=== PATIENT | female | born 1990 | race Caucasian/White ===

== ENCOUNTER → 2018-03-19 | Emergency (ER) | payer OTHER ==
[~2018-03-19] VITALS: Ht 157.5 cm; Wt 63.0 kg
[~2018-03-19] MED LIST: PEPCID40 MG PO; ZOFRAN ODT4 MG PO
== END | disposition home or self-care (01) ==
LOC: ER 21:40
DX: O26.891 Other specified pregnancy related conditions, first trimester (principal); K29.70 Gastritis, unspecified, without bleeding; Z34.01 Encounter for supervision of normal first pregnancy, first trimester

== ENCOUNTER 2018-09-22 10:49 | Inpatient (IN) | payer OTHER ==
[~2018-09-22] VITALS: Ht 157.5 cm; Wt 75.3 kg
[2018-11-09] MEDS ORDERED: OBSTETRIX DHA1 EACH PO (16:11)
== END 2018-11-12 11:41 | disposition home or self-care (01) | DRG 788 ==
LOC: OB/GYN 10-21 12:00 → LDR 11-09 05:20 → OB/GYN 11-09 05:32 → LDR 11-09 06:34 → OB/GYN 11-09 21:24
PROVIDERS: ADMIT Obstetrics & Gynecology
PROC: 3E0P7VZ Introduction of Hormone into Female Reproductive, Via Natural or Artificial Opening (ICD-10-PCS; 2018-11-09)
PROC: 3E033VJ Introduction of Other Hormone into Peripheral Vein, Percutaneous Approach (ICD-10-PCS; 2018-11-09)
PROC: 4A1HXCZ Monitoring of Products of Conception, Cardiac Rate, External Approach (ICD-10-PCS; 2018-11-09)
PROC: 10D00Z1 Extraction of Products of Conception, Low, Open Approach (ICD-10-PCS; principal; 2018-11-09 16:00)
DX: O61.0 Failed medical induction of labor (principal); Z3A.40 40 weeks gestation of pregnancy; Z37.0 Single live birth

== ENCOUNTER 2018-11-18 01:18 | Emergency (ER) | payer OTHER ==
[~2018-11-18] VITALS: Ht 157.5 cm; Wt 67.1 kg
[~2018-11-18 01:18] MED LIST changes: +OBSTETRIX DHA1 EACH PO
== END 2018-11-18 03:26 | disposition home or self-care (01) ==
LOC: ER 01:18
DX: M54.2 Cervicalgia (principal)

== ENCOUNTER 2018-11-18 14:28 | Inpatient (IN) | payer OTHER ==
[~2018-11-18] VITALS: Ht 157.5 cm; Wt 67.1 kg
[2018-11-21] MEDS ORDERED: LABETALOL HCL200 MG PO (16:39)
[2018-11-21] MEDS ORDERED: NIFEDIPINE ER30 MG PO (16:39)
== END 2018-11-21 17:07 | DRG 776 ==
LOC: OBS/DEL 14:28 → OB/GYN 11-19 07:10 → OBS/DEL 11-19 07:10 → LDR 11-19 07:10 → OB/GYN 11-19 17:40
PROVIDERS: ADMIT Obstetrics & Gynecology
PROC: B020ZZZ Computerized Tomography (CT Scan) of Brain (ICD-10-PCS; principal; 2018-11-19)
PROC: B246ZZZ Ultrasonography of Right and Left Heart (ICD-10-PCS; 2018-11-19)
DX: O16.5 Unspecified maternal hypertension, complicating the puerperium (principal); O89.4 Spinal and epidural anesthesia-induced headache during the puerperium

== ENCOUNTER 2018-12-21 09:52 | Outpatient (CLI) | payer OTHER ==
[~2018-12-21 09:52] MED LIST changes: +LABETALOL HCL200 MG PO; +NIFEDIPINE ER30 MG PO
== END 2018-12-21 21:09 | disposition home or self-care (01) ==
LOC: OBS/DEL 09:52
DX: O13.5 Gestational [pregnancy-induced] hypertension without significant proteinuria, complicating the puerperium (principal)

== ENCOUNTER 2019-02-25 20:20 | Emergency (ER) | payer OTHER ==
[~2019-02-25] VITALS: Ht 157.5 cm; Wt 56.7 kg
[2019-02-25] MEDS ORDERED: OSEL75CA PO (22:22)
[2019-02-25] MEDS ORDERED: TUSNEL LIQUID178 ML PO (22:22)
[2019-02-25] MEDS ORDERED: DOLOGEN CAPLET1 EACH PO (22:22)
== END 2019-02-25 22:37 | disposition home or self-care (01) ==
LOC: ER 20:20
DX: J11.1 Influenza due to unidentified influenza virus with other respiratory manifestations (principal)